=== PATIENT | male | born 1985 | race Caucasian/White ===

== ENCOUNTER 2019-07-23 10:28 | Emergency (ER) | payer SELFPAY ==
[~2019-07-23] VITALS: Ht 188 cm; Wt 98.5 kg
--- NOTE | 2019-07-23 10:40 | NUR ---
pt to ed for chronic sinus pressure and congfestion since 06/04/2019. pt states has velia treated with otc medas and abx wtih no help. pt connected to monitors. vss. awaiting edmd assessment.
--- NOTE | 2019-07-23 11:11 | NUR ---
Dr. Dowell to bs for assessment.
--- NOTE | 2019-07-23 11:16 | NUR ---
edmd assessment complete. orders for ct received. pt resting in room. vss on ra. poc discussed and all questions answered. no needs expressed. call light within reach. awaiting ct.
--- NOTE | 2019-07-23 11:50 | NUR ---
PT TO CT
--- NOTE | 2019-07-23 12:04 | NUR ---
pt back from ct. vss. no needs expressed. call light within reach. awaiting ct resutls.
--- NOTE | 2019-07-23 12:36 | NUR ---
pt resting in room. vss. no needs expressed. call light within reach. all results back. chart up for recheck.
[2019-07-23 13:31] VITALS: BP 100/70
--- NOTE | 2019-07-23 13:32 | NUR ---
pt resting in room. vss. no needs expressed. call light within reach. plan to dc. pt dressing now.
--- NOTE | 2019-07-23 14:06 | NUR ---
TASK RN: DC EDUCATION PROVIDED. PT DEMONSTRATES UNDERSTANDING. PT AMBULATED STEADILY TO DC WITH RN
== END 2019-07-23 14:08 | disposition home or self-care (01) ==
LOC: ED 13:50
DX: J32.0 Chronic maxillary sinusitis (principal)
CPT/HCPCS: 76380; 99284